=== PATIENT | male | born 1930 | race Caucasian/White ===

== ENCOUNTER 2018-02-10 07:46 | Day surgery (SDC) | payer OTHER, MEDICAID ==
[~2018-02-10] VITALS: Ht 162.6 cm; Wt 63.5 kg
[2018-02-10 08:41] VITALS: BP 131/89
[2018-02-10 13:34] VITALS: BP 137/87
== END 2018-02-10 12:40 | disposition home or self-care (01) ==
LOC: DS 07:46 → OR 08:30 → DS 12:40
PROVIDERS: Internal Medicine Gastroenterology
PROC: 0DH63UZ Insertion of Feeding Device into Stomach, Percutaneous Approach (ICD-10-PCS; principal; 2018-02-10 08:30)
PROC: 0DB58ZX Excision of Esophagus, Via Natural or Artificial Opening Endoscopic, Diagnostic (ICD-10-PCS; 2018-02-10 08:30)
PROC: 0DB68ZX Excision of Stomach, Via Natural or Artificial Opening Endoscopic, Diagnostic (ICD-10-PCS; 2018-02-10 08:30)
DX: R13.10 Dysphagia, unspecified (principal); G20 Parkinson's disease; K29.40 Chronic atrophic gastritis without bleeding; B96.81 Helicobacter pylori [H. pylori] as the cause of diseases classified elsewhere; B37.81 Candidal esophagitis; K59.00 Constipation, unspecified
CPT/HCPCS: 43235; 43760; 82962; J0690; J1200; J1610; J2250; J2310; J3010; J3490